=== PATIENT | male | born 2000 | race Caucasian/White ===

== ENCOUNTER 2020-09-28 23:04 | Emergency (ER) | payer OTHER ==
[2020-09-29] MEDS ORDERED: PERCOCET 5-3251 EACH PO (01:14)
[2020-09-29] MEDS ORDERED: IBUPROFEN800 MG PO (01:14)
[2020-09-29] MEDS ORDERED: AMOXICILLIN500 MG PO (01:14)
== END 2020-09-29 01:26 | disposition home or self-care (01) ==
LOC: FER 23:04
DX: K04.7 Periapical abscess without sinus (principal); K02.9 Dental caries, unspecified; H92.01 Otalgia, right ear; F17.200 Nicotine dependence, unspecified, uncomplicated
CPT/HCPCS: 99282; J1885; Q0163